=== PATIENT | female | born 1985 | race Caucasian/White ===

== ENCOUNTER 2024-03-05 09:01 | Day surgery (SDC) | payer SELFPAY ==
[2024-03-05] VITALS (11 sets, daily range): BP systolic 103–153; BP diastolic 64–107; BMI 31.7
[2024-03-05] MEDS: DILAUDID 0.5 MG IV (13:18)
--- NOTE | 2024-03-05 13:47 | SUR.PHASEI ---
Received pt from [facility] due to pt having severe pain and needed management for pain.
== END 2024-03-05 15:49 | disposition home or self-care (01) ==
LOC: SDS 09:01
PROVIDERS: ATTENDING PHYSICIAN Internal Medicine Cardiovascular Disease
DX: K80.50 Calculus of bile duct without cholangitis or cholecystitis without obstruction (principal); R93.2 Abnormal findings on diagnostic imaging of liver and biliary tract; R74.8 Abnormal levels of other serum enzymes
CPT/HCPCS: 43262; 43264; 71045; 74018; 74330; 76000; C1769